=== PATIENT | male | born 1970 | race Caucasian/White ===

== ENCOUNTER 2017-03-04 17:32 | Emergency (ER) | payer BC ==
[2017-04-14] MEDS ORDERED: SYNTHROID125 MCG PO (13:20)
[2017-04-14] MEDS ORDERED: LIPITOR40 MG PO (13:21)
[2017-04-14] MEDS ORDERED: ASPIRIN EC81 MG PO (13:21)
[2017-04-14] MEDS ORDERED: JANUVIA100 MG PO (13:22)
[2017-04-14] MEDS ORDERED: GLUCOPHAGE500 MG PO (13:38)
== END 2017-03-04 20:26 | disposition home or self-care (01) ==
LOC: ER 17:32
DX: R53.81 Other malaise (principal); R21 Rash and other nonspecific skin eruption; R06.2 Wheezing; R52 Pain, unspecified; R53.1 Weakness; I10 Essential (primary) hypertension; E05.00 Thyrotoxicosis with diffuse goiter without thyrotoxic crisis or storm; F17.210 Nicotine dependence, cigarettes, uncomplicated; Z79.82 Long term (current) use of aspirin; Z79.899 Other long term (current) drug therapy
CPT/HCPCS: 36415; 87476; 96360